=== PATIENT | male | born 1930 | race Caucasian/White ===

== ENCOUNTER 2016-09-03 06:25 | Day surgery (SDC) | payer MEDICARE, BC ==
--- NOTE | ~2016-09-03 | EGD ---
EGD REPORT [facility] [address] [place] [id number] NAME: EDINSON SIMS : [birth year] STATUS : REG [facility]#: [id number] AGE: 85 ADM/REG DATE : 09/03/16 MR#: [id number] REPORT SERV DATE: 09/03/16 DICTATED BY: DATE: REPORT STATUS : Draft TRANSCRIBED BY: [employer] DATE: 09/03/16 [facility] Patient Name: Edinson Sims Date of : 1930 Attending MD: MODESTO ROLLINS MD Procedure Date No Time: 09/03/2016 Procedure: Upper GI endoscopy Indications: Cirrhosis with suspected esophageal varices; intolerant to BB hypotension; Omeprazole 20mg daily. Patient Profile: Informed consent was obtained from the patient by me prior to the procedure. Risks, benefits, and alternatives were discussed including the risk of bleeding, perforation, infection, reaction to medicine, missed lesion, and cardiopulmonary complications. Referring MD: ILENE BHAKTA MD, JUDITH SUERO Medicines: Monitored Anesthesia Care Complications: No immediate complications. Procedure: Pre-Anesthesia Assessment: - ASA Grade Assessment: III - A patient with severe systemic disease. After obtaining informed consent, the endoscope was passed under direct vision. Throughout the procedure, the patient's blood pressure, pulse, and oxygen saturations were monitored continuously. The GIF [id number] was introduced through the mouth, and advanced to the second part of duodenum. The endoscope was withdrawn with careful examination all mucosal surfaces including retroflexion stomach. The upper GI endoscopy was accomplished without difficulty. The patient tolerated the procedure well. Findings: The examined duodenum was normal. A single localized benign appearing small erosion was found in the gastric antrum. Mild portal hypertensive gastropathy was found in the cardia, in the gastric fundus and in the gastric body. The Z-line was irregular, no nodules or esophagitis; not biopsied. Grade I varices were found in the lower third of the esophagus, no stigmata; not large enough to band. Impression: - Normal examined duodenum. - Erosive gastropathy. - Portal hypertensive gastropathy. - Z-line irregular,. EGD REPORT [address] [address] NAME: EDINSON SIMS : [birth year] STATUS : REG [facility] PAT#: [id number] AGE: 85 ADM/REG DATE : 09/03/16 MR#: [id number] REPORT SERV DATE: 09/03/16 DICTATED BY: DATE: REPORT STATUS : Draft TRANSCRIBED BY: [place] DATE: 09/03/16 - Grade I esophageal varices. Recommendation: - Patient has a contact number available for emergencies. The signs and symptoms of potential delayed complications were discussed with the patient. Return to normal activities tomorrow. Written discharge instructions were provided to the patient. - Regular diet. - Continue present medications. - Increase Prilosec to 20mg bid. - Repeat the upper endoscopy in 1 year for surveillance--Zafar MONSON. Procedure Code(s): --- Professional --- 86875, Esophagogastroduodenoscopy, flexible, transoral; diagnostic, including collection of specimen(s) by brushing or washing, when performed (separate procedure) Diagnosis Code(s): --- Professional --- K31.9, Disease of stomach and duodenum, unspecified K76.6, Portal hypertension K31.89, Other diseases of stomach and duodenum K22.8, Other specified diseases of esophagus I85.10, Secondary esophageal varices without bleeding K74.60, Unspecified cirrhosis of liver CPT copyright 2013 [employer]. All rights reserved. The codes documented in this report are preliminary and upon mailing machine helper review may be revised to meet current compliance requirements. MODESTO ROLLINS MD 09/03/2016 7:52 AM This report has been signed electronically. Number of Addenda: 0 Note Initiated On: 09/03/2016 7:33 AM Scope Withdrawal Time 0 hours 0 minutes 0 seconds [address] [place] [id number]
[~2016-09-03 06:25] MED LIST: ACET500CAP PO; ASA5GR PO; ATEN50 PO; COR20 PO; FLOMAX4 PO; HYT5 PO; L20 PO; NEUR300 PO; POT GLUCONAT550 M1 OR; PRAV10 PO; PRILO PO; PRIN10 PO; QUESTRAN4 GM PO; SPIRO50 PO; TYLENOL EXTRA STR PO; VITAMIN B-121000 MC1 PO; VITAMIN B-121000 MC1 SL; ZESTORETIC1 TAB PO
== END 2016-09-03 23:59 | disposition home health service (06) ==
LOC: DMU 06:25
PROVIDERS: Internal Medicine Gastroenterology
PROC: 0DJ08ZZ Inspection of Upper Intestinal Tract, Via Natural or Artificial Opening Endoscopic (ICD-10-PCS; principal; 2016-09-03 07:30)
DX: K76.6 Portal hypertension (principal); I85.00 Esophageal varices without bleeding; K74.60 Unspecified cirrhosis of liver; E11.9 Type 2 diabetes mellitus without complications; I25.10 Atherosclerotic heart disease of native coronary artery without angina pectoris; I25.2 Old myocardial infarction; Z79.899 Other long term (current) drug therapy; Z87.891 Personal history of nicotine dependence; E78.00 Pure hypercholesterolemia, unspecified; I10 Essential (primary) hypertension; D64.9 Anemia, unspecified; M19.90 Unspecified osteoarthritis, unspecified site; K21.9 Gastro-esophageal reflux disease without esophagitis; Z90.49 Acquired absence of other specified parts of digestive tract; Z98.890 Other specified postprocedural states
CPT/HCPCS: 82962; J2370